=== PATIENT | female | born 1990 | race Caucasian/White ===

== ENCOUNTER 2020-03-15 15:53 | Inpatient (IN) | payer BC ==
[2020-03-17] MEDS ORDERED: Bupivacaine 0.25% 10 ML SDV ONE
[2020-03-17] MEDS ORDERED: Nalbuphine 10 MG/ML Syringe IVPUSH PRN (18:19)
[2020-03-17] MEDS ORDERED: Sodium Chloride 0.9% 10 ML Syringe FLUSH PRN (18:19)
[2020-03-17] MEDS ORDERED: Oxytocin/Lactated Ringers 10 UNIT/1,000 ML BAG IV SCH ×2 (18:30)
[2020-03-17] MEDS: Lactated Ringers 1,000 ML IV SCH ×5 (19:26→21:35)
[2020-03-17] MEDS ORDERED: diphenhydrAMINE 50 MG/ML SDV IVPUSH PRN (19:48)
[2020-03-17] MEDS ORDERED: Bupivacaine/fentaNYL/NS 100 ML Bag EPIDUR PRN (19:48)
[2020-03-17] MEDS ORDERED: ePHEDrine 50 MG/ML SDV IVPUSH PRN (19:48)
[2020-03-17] MEDS ORDERED: fentaNYL 100 MCG/2 ML SDV EPIDUR PRN (19:48)
--- NOTE | 2020-03-17 20:17 | PCM.PREANE ---
Preanesthetic Assessment - Procedure Proposed Procedure: epidural - Anesthesia/Transfusion/Family Hx Anesthesia History: Prior Anesthesia Without Reaction Family History of Anesthesia Reaction: No Transfusion History: No Prior Transfusion(s) - Review of Systems General: Fatigue Pulmonary: No Symptoms Cardiovascular: No Symptoms Gastrointestinal: Abdominal Pain (labor) Neurological: No Symptoms Other: Reports: None - Physical Assessment Vital Signs: Last Vital Signs Temp 36.7 C 03/17/20 17:48 Pulse 107 H 03/17/20 17:48 Resp 18 03/17/20 17:48 BP 118/85 03/17/20 17:48 Pulse Ox 100 03/17/20 17:48 Height: 1.63 m Weight: 66.678 kg ASA Class: 2 Mental Status: Alert & Oriented x3 Airway Class: Mallampati = 1 Dentition: Reports: Normal Dentition Thyro-Mental Finger Breadths: 3 Mouth Opening Finger Breadths: 3 ROM/Head Extension: Full Lungs: Clear to Auscultation, Normal Respiratory Effort Cardiovascular: Regular Rate, Regular Rhythm - Lab Values: Laboratory Last Values WBC 5.36 K/mm3 (3.98-10.04) 03/17/20 18:29 RBC 3.74 M/mm3 (3.98-5.22) L 03/17/20 18:29 Hgb 11.5 gm/dl (11.2-15.7) 03/17/20 18:29 Hct 35.1 % (34.1-44.9) 03/17/20 18: MCV 93.9 fl (79.4-94.8) 03/17/20 18:29 MCH 30.7 pg (25.6-32.2) 03/17/20 18: MCHC 32.8 g/dl (32.2-35.5) 03/17/20 18:29 RDW Std Deviation 45.0 fL (36.4-46.3) 03/17/20 18:29 Plt Count 119 K/mm3 (182-369) L 03/17/20 18: MPV 11.3 fl (9.4-12.3) 03/17/20 18:29 Neut % (Auto) 68.0 % (34.0-71.1) 03/17/20 18: Lymph % (Auto) 25.2 % (19.3-51.7) 03/17/20 18: [place] % (Auto) 6.2 % (4.7-12.5) 03/17/20 18: Eos % (Auto) 0.4 (0.7-5.8) L 03/17/20 18: Baso % (Auto) 0.2 % (0.1-1.2) 03/17/20 18: Neut # (Auto) 3.65 K/mm3 (1.56-6.13) 03/17/20 18: Lymph # (Auto) 1.35 K/mm3 (1.18-3.74) 03/17/20 18: [place] # (Auto) 0.33 K/mm3 (0.24-0.36) 03/17/20 18: Eos # (Auto) 0.02 K/mm3 (0.04-0.36) L 03/17/20 18: Baso # (Auto) 0.01 K/mm3 (0.01-0.08) 03/17/20 18:29 COVID-19 (GALE) Negative (NEGATIVE) 03/17/20 18:30 Blood Type O POSITIVE 03/17/20 18:29 Gel Antibody Screen Negative 03/17/20 18:29 - Allergies Allergies/Adverse Reactions: Allergies Allergy/AdvReac Type Severity Reaction Status Date / Time No Known Allergies Allergy Verified 03/17/20 19:26 - Anesthesia Plan Pre-Op Medication Ordered: None - Acknowledgements Anesthesia Type Planned: Epidural Pt an Appropriate Candidate for the Planned Anesthesia: Yes Alternatives and Risks of Anesthesia Discussed w Pt/Guardian: Yes Pt/Guardian Understands and Agrees with Anesthesia Plan: Yes PreAnesthesia Questionnaire - Past Health History Medical/Surgical History: Denies Medical/Surgical History Gastrointestinal History: Reports: GERD 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: - HOME MEDS Home Medications: Home Meds Vits #93/Iron Fum/FA [ Formula Tablet] 1 each PO DAILY 03/17/20 [History] - CURRENT (IN HOUSE) MEDS Current Meds: Current Medications Diphenhydramine HCl (Benadryl) 25 mg IVPUSH Q6H PRN PRN Reason: pruritis Ephedrine Sulfate (Ephedrine Sulfate) 5 mg IVPUSH ASDIRECTED PRN PRN Reason: Hypotension Fentanyl (Sublimaze) 100 mcg EPIDUR Q3H PRN PRN Reason: Pain Last Admin: 03/17/20 19:59 Dose: 100 mcg Documented by: Fentanyl/Bupivacaine HCl (Fentanyl/Bupivacaine/Ns 2 Mcg-0.125% 100 Ml) 100 ml EPIDUR ASDIRECTED PRN PRN Reason: Pain Last Admin: 03/17/20 19:59 Dose: 100 ml Documented by: Oxytocin/Lactated Ringer's (Pitocin In Lr 10 Units/1,000 Ml) 10 unit in 1,000 mls @ 12 mls/hr IV TITRATE JEREMIAH; Protocol Oxytocin/Lactated Ringer's (Pitocin In Lr 10 Units/1,000 Ml) 10 unit in 1,000 mls @ 100 mls/hr IV .CONTINUOUS JEREMIAH Lactated Ringer's (Ringers, Lactated) 1,000 mls @ 100 mls/hr IV ASDIRECTED JEREMIAH Last Admin: 03/17/20 19:26 Dose: 100 mls/hr Documented by: Nalbuphine HCl (Nubain) 10 mg IVPUSH Q2H PRN PRN Reason: Pain Sodium Chloride (Saline Flush) 10 ml FLUSH ASDIRECTED PRN PRN Reason: Keep Vein Open
--- NOTE | 2020-03-17 21:14 | PCM.LDHP ---
L&D History of Present Illness - General Date of Service: 03/17/20 Admit Problem/Dx: Patient Status Order with Admit Dx/Problem 03/17/20 18:20 Patient Status [ADT] Routine Admission Diagnosis/Problem Admission Diagnosis/Problem 03/17/20 21:05 Rachelle is a 29-year-old 3 para 2-0-0-2 white female who is admitted on the afternoon of 03/17/2020 at 40-1/7 weeks gestational age with an SREE of 03/16/2020 for induction of labor. Source of Information: Patient History Limitations: Reports: No Limitations - History of Present Illness Introduction:: Rachelle is a 29-year-old 3 para 2-0-0-2 white female who is admitted on the afternoon of 03/17/2020 at 40-1/7 weeks gestational age with an SREE of 2019 for induction of labor. The procedure and process of induction of labor its risks, benefits and follow-up along with alternatives of care discussed in detail with patient. She appears to understand and wishes to proceed. 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 Patient had menarche at age 16. Cycles q. 28 days. Last menstrual cycle was certain with an SREE of 03/16/2020 as determined by her LMP 06/10/2019 and supported by at least 2 ultrasounds during the course of the . Patient's previous obstetric history includes the followin. Female infant born 01/30/2015 at 40 weeks gestational age at 12:12 hours of labor6 pound 11 ounce. with epidural with child born in [place]. This child's name is Hellen 2. Female infant born [birth year]16/2016 at 40 weeks gestational age after 5 hours of labor. 7 pounds 0 ounces child born via . Epidural anesthesia. Child born in [place]. Her name is Shaniqua. course: Patient's course was relatively unremarkable. Her first visit was at 11 weeks and 5 days on 08/31/2019. She was seen on a very regular basis. Throughout the she had a weight gain from 125 to 147.2 pounds for a 22.2 pound increase. Her blood pressure and vital signs remained normal throughout the course. Fundal height growth was essentially appropriate. Her heart rate was normal. Her group B strep s creen is negative. Platelet count ran lower than optimal with last count on 03/09/2020 at 134,000. She desires an epidural. Her [place] depression screen score is 1/30 on 11/17/2019. She has a history of fast labor. Patient plans to breast-feed. Patient's immunization record shows her Tdap was given on 01/11/2020. laboratory testing shows blood to be O+ with a negative antibody screen. Her hemoglobin is 12.2 g/dL on first visit and platelets are 163,000. She was rubella immune. RPR is nonreactive. Hepatitis B surface antigen and HIV assays were both negative. Gonorrhea and Chlamydia tests were negative. Second trimester labs showed a hemoglobin of 11.5 g/dL and platelets are 128,000. Diabetic screening test was normal at 126. Repeat platelet count on 01/25/2020 was 122,000 and hemoglobin was 10.9. Patient was advised to start on iron supplementation at that time. Her RPR recheck on 12/15/2019 was nonreactive and her group B strep screen was negative. Allergies: None Medications: adult gummy vitamins. Past medical history: 1. x2. 2. Thrombocytopenia stational in nature. Past surgical history: Unremarkable. Family history: Mother and father are alive and well. 4 sisters all alive and well. Maternal grand mother is alive but with a history of breast cancer after age 50. Paternal grand mother is alive and well. Maternal grandfather is alive and well and paternal grandfather is at age 93. No known family history of cancer, bleeding or clotting disorders, anesthesia related issues or related problems. Social history: Patient is . is Kaz Grajeda. 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 They live in [place], [place]. She does not use any significant muscle alcohol, drugs or tobacco. Review of systems: In general patient has no complaints. His last evening which almost brought her to the hospital. They then subsided and she is able to rest. She is reporting good activity. Skin: Negative Lungs: No infectious symptoms or shortness of breath Cardiovascular: No chest pain or exercise intolerance Breasts: No lumps, changes in size, pain, dimpling, discharge or axillary or supraclavicular concerns. Patient plans to breast-feed. GI: Negative : changes noted. Musculoskeletal: Negative Neurological: Negative Physical exam: In general the patient is well-developed, well-nourished, pleasant female of stated age in no acute distress. Skin is warm dry without lesions. HEENT, neck and back within normal limits. Lungs are clear with good breath sounds in all lung fowler. Cardiovascular exam shows regular and rhythm without murmurs. Breast exam is deferred having been done at first medical visit and found to be normal. It is not repeated at this time Abdomen is gravid with last fundal height in clinic at 34.5 cm both babies had very low in the pelvis. Baby is felt to be in vertex presentation. Genital evaluation per digital exam shows cervix upon admission to be 3 cm, 90% effaced, -3 station but well applied to the cervix, anterior and soft. Patient underwent artificial rupture membranes with resultant clear amniotic fluid. Extremities and neurological exam are grossly within normal limits. 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&P Review of Systems - Review of Systems: Review Of Systems: See Below L&D Exam - Exam Exam: See Below - Vital Signs Vital Signs: Last Vital Signs Temp 36.7 C 03/17/20 17:48 Pulse 107 H 03/17/20 17:48 Resp 18 03/17/20 17:48 BP 118/85 03/17/20 17:48 Pulse Ox 100 03/17/20 17:48 Weight: 66.678 kg - Patient Data Lab Results Last 24 hrs: Laboratory Results - last 24 hr 03/17/20 03/17/20 03/17/20 Range/Units 18:29 18:29 18:30 WBC 5.36 (3.98-10.04) K/mm3 RBC 3.74 L (3.98-5.22) M/mm3 Hgb 11.5 (11.2-15.7) gm/dl Hct 35.1 (34.1-44.9) % MCV 93.9 (79.4-94.8) fl MCH 30.7 (25.6-32.2) pg MCHC 32.8 (32.2-35.5) g/dl RDW Std Deviation 45.0 (36.4-46.3) fL Plt Count 119 L (182-369) K/mm3 MPV 11.3 (9.4-12.3) fl Neut % (Auto) 68.0 (34.0-71.1) % Lymph % (Auto) 25.2 (19.3-51.7) % [place] % (Auto) 6.2 (4.7-12.5) % Eos % (Auto) 0.4 L (0.7-5.8) Baso % (Auto) 0.2 (0.1-1.2) % Neut # (Auto) 3.65 (1.56-6.13) K/mm3 Lymph # (Auto) 1.35 (1.18-3.74) K/mm3 [place] # (Auto) 0.33 (0.24-0.36) K/mm3 Eos # (Auto) 0.02 L (0.04-0.36) K/mm3 Baso # (Auto) 0.01 (0.01-0.08) K/mm3 COVID-19 (GALE) Negative (NEGATIVE) Blood Type O POSITIVE Gel Antibody Screen Negative Result Diagrams: 03/17/20 18:29 Problem List Initiated/Reviewed/Updated: Yes Orders Last 24hrs: Active Orders 24 hr Category Date Time Status Patient Status [ADT] Routine ADT 03/17/20 18:20 Active Activity as Tolerated [RC] PFP Care 03/17/20 18:19 Active Communication Order [RC] ASDIRECTED Care 03/17/20 18:19 Active Communication Order [RC] ASDIRECTED Care 03/17/20 19:49 Active Cooling Warming Measures [RC] ASDIRECTED Care 03/17/20 19:49 Active Heart Tones [RC] ASDIRECTED Care 03/17/20 18:20 Active Non Stress Test [RC] PER UNIT ROUTINE Care 03/17/20 18:19 Active Notify Provider [RC] ASDIRECTED Care 03/17/20 19:48 Active Notify Provider [RC] ASDIRECTED Care 03/17/20 19:49 Active Notify Provider [RC] PFP Care 03/17/20 18:19 Active Notify Provider [RC] PRN Care 03/17/20 18:19 Active Oxygen Therapy [RC] ASDIRECTED Care 03/17/20 19:49 Active Peripheral IV Care [RC] . DIRECTED Care 03/17/20 18:20 Active Pulse Oximetry [RC] ASDIRECTED Care 03/17/20 19:49 Active Vital Signs [RC] PER UNIT ROUTINE Care 03/17/20 18:19 Active Vital Signs [RC] Q1H Care 03/17/20 19:49 Active Regular Diet [DIET] Diet 03/17/20 Breakfast Active RAPID PLASMA REAGIN,RPR [CHEM] Stat Lab 03/17/20 18:29 Received Bupivacaine/fentaNYL/NS [fentaNYL/Bupivacaine/NS 2 MCG- Med 03/17/20 19:48 Active 0.125% 100 ML] 100 ml EPIDUR ASDIRECTED PRN Lactated Ringers [Ringers, Lactated] 1,000 ml Med 03/17/20 18:30 Active IV ASDIRECTED Nalbuphine [Nubain] Med 03/17/20 18:19 Active 10 mg IVPUSH Q2H PRN Oxytocin/Lactated Ringers [Pitocin in LR 10 Units/1,000 Med 03/17/20 18:30 Active ML] 10 unit in 1,000 ml IV .CONTINUOUS Oxytocin/Lactated Ringers [Pitocin in LR 10 Units/1,000 Med 03/17/20 18:30 Active ML] 10 unit in 1,000 ml IV TITRATE Sodium Chloride 0.9% [Saline Flush] Med 03/17/20 18:19 Active 10 ml FLUSH ASDIRECTED PRN diphenhydrAMINE [Benadryl] Med 03/17/20 19:48 Active 25 mg IVPUSH Q6H PRN ePHEDrine [ePHEDrine sulfate] Med 03/17/20 19:48 Active 5 mg IVPUSH ASDIRECTED PRN fentaNYL [Sublimaze] Med 03/17/20 19:48 Active 100 mcg EPIDUR Q3H PRN Electronic Heart Tones Ext w TOCO [WOMSER] Oth 03/17/20 18:19 Ordered Routine Electronic Heart Tones Internal [WOMSER] Per Unit Oth 03/17/20 18:19 Ordered Routine Peripheral IV Insertion Adult [OM.PC] Routine Oth 03/17/20 18:19 Ordered Resuscitation Status Routine Resus Stat 03/17/20 18:19 Ordered Medication Orders Diphenhydramine HCl (Benadryl) 25 mg IVPUSH Q6H PRN PRN Reason: pruritis Ephedrine Sulfate (Ephedrine Sulfate) 5 mg IVPUSH ASDIRECTED PRN PRN Reason: Hypotension Fentanyl (Sublimaze) 100 mcg EPIDUR Q3H PRN PRN Reason: Pain Last Admin: 03/17/20 19:59 Dose: 100 mcg Documented by: GRAY Fentanyl/Bupivacaine HCl (Fentanyl/Bupivacaine/Ns 2 Mcg-0.125% 100 Ml) 100 ml EPIDUR ASDIRECTED PRN PRN Reason: Pain Last Admin: 03/17/20 19:59 Dose: 100 ml Documented by: GRAY Oxytocin/Lactated Ringer's (Pitocin In Lr 10 Units/1,000 Ml) 10 unit in 1,000 mls @ 12 mls/hr IV TITRATE JEREMIAH; Protocol Oxytocin/Lactated Ringer's (Pitocin In Lr 10 Units/1,000 Ml) 10 unit in 1,000 mls @ 100 mls/hr IV .CONTINUOUS JEREMIAH Lactated Ringer's (Ringers, Lactated) 1,000 mls @ 100 mls/hr IV ASDIRECTED JEREMIAH Last Admin: 03/17/20 20:30 Dose: 100 mls/hr Documented by: Infusion: 03/17/20 20:30 Dose: 100 mls/hr Documented by: Admin: 03/17/20 20:28 Dose: 100 mls/hr Documented by: Infusion: 03/17/20 20:28 Dose: 100 mls/hr Documented by: Admin: 03/17/20 20:25 Dose: 100 mls/hr Documented by: Infusion: 03/17/20 19:26 Dose: 100 mls/hr Documented by: Admin: 03/17/20 19:26 Dose: 100 mls/hr Documented by: GRAY Nalbuphine HCl (Nubain) 10 mg IVPUSH Q2H PRN PRN Reason: Pain Sodium Chloride (Saline Flush) 10 ml FLUSH ASDIRECTED PRN PRN Reason: Keep Vein Open Assessment/Plan Comment:: 1. 40-1/7-week intrauterine , admitted for induction of labor. 2. Group B strep screen negative 3. Patient desires epidural 4. Patient plans to breast-feed 5. Platelets low but acceptable at 119,000. Level is adequate to allow for regional anesthesia with epidural. 6. Patient is rubella immune. 7. Tdap was given during the . 8. Reported history of rapid labors Plan: 1. Anticipate normal spontaneous vaginal delivery 2. Epidural per patient desire 3. Platelet count and RPR performed per routine protocol 4. Routine labor care
[2020-03-17] MEDS ORDERED: Acetaminophen 325 MG Tab PO PRN ×2 (21:38→23:46)
--- NOTE | 2020-03-17 23:16 | PCM.SN.2 ---
- Free Text/Narrative Note: Delivery note: Rachelle is a 29-year-old 3 para 2-0-0-2 white female who is admitted on the afternoon of 03/17/2020 at 40-1/7 weeks gestational age with an SREE of 03/16/2020 for induction of labor. Patient is noted to be dilated to 3 cm upon admission and artificial rupture membranes undertaken. With this she kicked into an early labor pattern she underwent labor epidural for analgesia. She was augmented with Pitocin to facilitate a more efficient labor. She became complete at approximately 2200 hrs. and pushed to approximately 2250 was at which time she delivered a viable, albright, female infant with Apgars of 9 and 9, length of 19.5 inches and a weight of 3220 g (7 pounds 1.6 ounces). The baby delivered in a right occiput anterior position. The perineum remained intact, no lacerations occurred and she did not require any suturing. The baby was placed on mom's abdomen and dried with a warm bath blanket and nose mouth were bulb suction. The Pitocin was increased to 500 cc an hour to facilitate increase in uterine tone and decrease likelihood of bleeding. The umbilical cord was allowed to pulsate times approximately 2 to 3 minutes, was then clamped x2 and cut by the baby's Father Kaz. There were 3 vessels in the umbilical cord. Cord blood was obtained. Patient's perineum was evaluated and no lacerations were found. No suturing was ordered. The placenta delivered at 2259 hrs. on 03/17/2020. It appeared intact and complete. It delivered in a Choi presentation. Estimated blood loss was 100 cc. Condition: Good. Patient plans to breast- feed.
[2020-03-17] MEDS ORDERED: Docusate Sodium 100 MG Cap PO PRN (23:46)
[2020-03-17] MEDS ORDERED: Benzocaine/Menthol 20%-0.5% Spray 56 GM Canister TOP PRN (23:46)
[2020-03-17] MEDS ORDERED: Witch Hazel Medicated Pads 40/Jar TOP PRN (23:46)
[2020-03-18] MEDS: Ibuprofen 600 MG Tab PO PRN ×3 (00:55→19:10)
[2020-03-18] MEDS ORDERED: Oxytocin/Lactated Ringers 10 UNIT/1,000 ML BAG IV ONE (05:00)
--- NOTE | 2020-03-18 05:57 | PCM.SN.2 ---
- Free Text/Narrative Note: note: Patient is doing well in the period. Minimal lochia, voiding well, ambulated without problems. Nursing without concerns. Patient is afebrile, vital signs are stable Abdomen is flat, soft, uterus is below the umbilicus and is firm and nontender. Legs are nontender. Assessment: recovery going well. Plan: Routine care. Patient be discharged home within the next 24-48 hours.
[2020-03-19] MEDS: Ibuprofen 600 MG Tab PO PRN ×2 (03:37→07:31)
--- NOTE | 2020-03-19 07:21 | PCM.SN.2 ---
- Free Text/Narrative Note: Post Progress Note PPD #2 Subjective: Doing well overall. Ambulating without difficulty. Lochia minimal. Voiding without difficulty. Tolerating regular diet without nausea or vomiting. Pain controlled with oral medications. Breast-feeding with minimal difficulty. Objective: Vitals: Vital Signs - 24 hr 03/18/20 03/18/20 03/18/20 09:28 15:00 19:50 Temperature 36.6 C 36.3 C Temperature [ 36.4 C Temporal] Pulse, 53 L 55 L Peripheral Pulse, 64 Peripheral [ Pulse Oximetry] Respiratory 15 15 15 Rate Blood Pressure 104/68 117/65 Blood Pressure 118/68 [Upper Arm] O2 Sat by Pulse 99 100 99 Oximetry 03/19/20 03:37 Temperature 36.3 C Temperature [ Temporal] Pulse, 63 Peripheral Pulse, Peripheral [ Pulse Oximetry] Respiratory 16 Rate Blood Pressure 106/71 Blood Pressure [Upper Arm] O2 Sat by Pulse 98 Oximetry Physical Exam General: Alert and oriented, no acute distress Lungs: Clear to auscultation bilaterally Heart: Regular rate and rhythm Abdomen: Soft, minimal appropriate tenderness, non-distended, fundus midline, nontender, and 1 fingerbreadth below the umbilicus Extremities: No edema Laboratory Tests 03/17/20 03/17/20 03/17/20 Range/Units 18:29 18:29 18:29 WBC 5.36 (3.98-10.04) K/mm3 RBC 3.74 L (3.98-5.22) M/mm3 Hgb 11.5 (11.2-15.7) gm/dl Hct 35.1 (34.1-44.9) % MCV 93.9 (79.4-94.8) fl MCH 30.7 (25.6-32.2) pg MCHC 32.8 (32.2-35.5) g/dl RDW Std Deviation 45.0 (36.4-46.3) fL Plt Count 119 L (182-369) K/mm3 MPV 11.3 (9.4-12.3) fl Neut % (Auto) 68.0 (34.0-71.1) % Lymph % (Auto) 25.2 (19.3-51.7) % [place] % (Auto) 6.2 (4.7-12.5) % Eos % (Auto) 0.4 L (0.7-5.8) Baso % (Auto) 0.2 (0.1-1.2) % Neut # (Auto) 3.65 (1.56-6.13) K/mm3 Lymph # (Auto) 1.35 (1.18-3.74) K/mm3 [place] # (Auto) 0.33 (0.24-0.36) K/mm3 Eos # (Auto) 0.02 L (0.04-0.36) K/mm3 Baso # (Auto) 0.01 (0.01-0.08) K/mm3 RPR Non-reactive (NONREACTIVE) COVID-19 (GALE) (NEGATIVE) Blood Type O POSITIVE Gel Antibody Screen Negative 03/17/20 Range/Units 18:30 WBC (3.98-10.04) K/mm3 RBC (3.98-5.22) M/mm3 Hgb (11.2-15.7) gm/dl Hct (34.1-44.9) % MCV (79.4-94.8) fl MCH (25.6-32.2) pg MCHC (32.2-35.5) g/dl RDW Std Deviation (36.4-46.3) fL Plt Count (182-369) K/mm3 MPV (9.4-12.3) fl Neut % (Auto) (34.0-71.1) % Lymph % (Auto) (19.3-51.7) % [place] % (Auto) (4.7-12.5) % Eos % (Auto) (0.7-5.8) Baso % (Auto) (0.1-1.2) % Neut # (Auto) (1.56-6.13) K/mm3 Lymph # (Auto) (1.18-3.74) K/mm3 [place] # (Auto) (0.24-0.36) K/mm3 Eos # (Auto) (0.04-0.36) K/mm3 Baso # (Auto) (0.01-0.08) K/mm3 RPR (NONREACTIVE) COVID-19 (GALE) Negative (NEGATIVE) Blood Type Gel Antibody Screen ASSESSMENT: 29-year-old female -0-0-3 s/p normal vaginal delivery PPD #2, complicated by gestational thrombocytopenia PLAN: Doing well Breast-feeding with minimal difficulty. Assist as needed Lochia minimal. Continue to monitor for appropriate lochia. Continue routine care Anticipate discharge home today Thom Leach MD 7:20 AM 03/19/2020
--- NOTE | 2020-03-19 07:29 | PCM.DCSUM1 ---
Discharge Summary - Hospital Course Free Text/Narrative:: Delivery note: Rachelle is a 29-year-old 3 para 2-0-0-2 white female who is admitted on the afternoon of 03/17/2020 at 40-1/7 weeks gestational age with an SREE of 03/16/2020 for induction of labor. Patient is noted to be dilated to 3 cm upon admission and artificial rupture membranes undertaken. With this she kicked into an early labor pattern she underwent labor epidural for analgesia. She was augmented with Pitocin to facilitate a more efficient labor. She became complete at approximately 2200 hrs. and pushed to approximately 2250 was at which time she delivered a viable, albright, female infant with Apgars of 9 and 9, length of 19.5 inches and a weight of 3220 g (7 pounds 1.6 ounces). The baby delivered in a right occiput anterior position. The perineum remained intact, no lacerations occurred and she did not require any suturing. The baby was placed on mom's abdomen and dried with a warm bath blanket and nose mouth were bulb suction. The Pitocin was increased to 500 cc an hour to facilitate increase in uterine tone and decrease likelihood of bleeding. The umbilical cord was allowed to pulsate times approximately 2 to 3 minutes, was then clamped x2 and cut by the baby's Father Kaz. There were 3 vessels in the umbilical cord. Cord blood was obtained. Patient's perineum was evaluated and no lacerations were found. No suturing was ordered. The placenta delivered at 2259 hrs. on 03/17/2020. It appeared intact and co mplete. It delivered in a Choi presentation. Estimated blood loss was 100 cc. Condition: Good. Patient plans to breast- feed. HPI Initial Comments: Delivery note: Rachelle is a 29-year-old 3 para 2-0-0-2 white female who is admitted on the afternoon of 03/17/2020 at 40-1/7 weeks gestational age with an SREE of 03/16/2020 for induction of labor. Patient is noted to be dilated to 3 cm upon admission and artificial rupture membranes undertaken. With this she kicked into an early labor pattern she underwent labor epidural for analgesia. She was augmented with Pitocin to facilitate a more efficient labor. She became complete at approximately 2200 hrs. and pushed to approximately 2250 was at which time she delivered a viable, albright, female with Apgars of 9 and 9, length of 19.5 inches and a weight of 3220 g (7 pounds 1.6 ounces). The baby delivered in a right occiput anterior position. The perineum remained intact, no lacerations occurred and she did not require any suturing. The baby was placed on mom's abdomen and dried with a warm bath blanket and nose mouth were bulb suction. The Pitocin was increased to 500 cc an hour to facilitate increase in uterine tone and decrease likelihood of bleeding. The umbilical cord was allowed to pulsate times approximately 2 to 3 minutes, was then clamped x2 and cut by the baby's Father Kaz. There were 3 vessels in the umbilical cord. Cord blood was obtained. Patient's perineum was evaluated and no lacerations were found. No suturing was ordered. The placenta delivered at 2259 hrs. on 03/17/2020. It appeared intact and complete. It delivered in a Choi presentation. Estimated blood loss was 100 cc. Condition: Good. Patient plans to breast- feed. Brief History: Delivery note: Rachelle is a 29-year-old 3 para 2-0-0-2 white female who is admitted on the afternoon of 03/17/2020 at 40-1/7 weeks gestational age with an SREE of 03/16/2020 for induction of labor. Patient is noted to be dilated to 3 cm upon admission and artificial rupture membranes undertaken. With this she kicked into an early labor pattern she underwent labor epidural for analgesia. She was augmented with Pitocin to facilitate a more efficient labor. She became complete at approximately 2200 hrs. and pushed to approximately 2250 was at which time she delivered a viable, albright, female infant with Apgars of 9 and 9, length of 19.5 inches and a weight of 3220 g (7 pounds 1.6 ounces). The baby delivered in a right occiput anterior position. The perineum remained intact, no lacerations occurred and she did not require any suturing. The baby was placed on mom's abdomen and dried with a warm bath blanket and nose mouth were bulb suction. The Pitocin was increased to 500 cc an hour to facilitate increase in uterine tone and decrease likelihood of bleeding. The umbilical cord was allowed to pulsate times approximately 2 to 3 minutes, was then clamped x2 and cut by the baby's Father Kaz. There were 3 vessels in the umbilical cord. Cord blood was obtained. Patient's perineum was evaluated and no lacerations were found. No suturing was ordered. The placenta delivered at 2259 hrs. on 03/17/2020. It appeared intact and complete. It delivered in a Choi presentation. Estimated blood loss was 100 cc. Condition: Good. Patient plans to breast-feed. Diagnosis: Stroke: No - Discharge Data Discharge Date: 03/19/20 Discharge Disposition: Home, Self-Care 01 Condition: Good - Referral to Home Health Primary Care Physician: Johnny Pulido MD - Discharge Diagnosis/Problem(s) (1) 40 weeks gestation of SNOMED Code(s): 87466966 ICD Code: Z3A.40 - 40 WEEKS GESTATION OF Status: Acute Current Visit: Yes (2) Gestational thrombocytopenia SNOMED Code(s): 354131591 ICD Code: O99.119 - OTH DIS OF BLD/BLD-FORM ORG/IMMUN MECHNSM COMP PREG,UNSP TRI; D69.6 - THROMBOCYTOPENIA, UNSPECIFIED Status: Acute Current Visit: Yes (3) Vaginal delivery SNOMED Code(s): 716908435 ICD Code: O80 - ENCOUNTER FOR FULL-TERM UNCOMPLICATED DELIVERY Status: Acute Current Visit: Yes - Patient Summary/Data Complications: None Consults: None Hospital Course: Rachelle Grajeda was admitted for induction of labor. On admission her cervix was dilated to 3 cm. She was GBS negative. She had artificial rupture of membranes with clear fluid. She was given pitocin for augmentation. She was given an epidural for anesthesia. [She progressed to complete and began pushing. On 03/17/2020 she had a normal vaginal delivery of a live female at 22:50. Apgars of 9 and 9. Weight of 3220 g (7 pounds 1.6 ounces). Her course was uneventful. Her pain was well controlled and she had minimal lochia. She was ambulating, tolerating a regular diet and voiding normally. She was breast-feeding with minimal difficulty. She was afebrile and her hematocrit was 35.1 on admission. She desired to be discharged home on the morning of PPD #2. Her blood type is O+. - Patient Instructions Diet: Regular Diet as Tolerated Activity: Apply Ice, As Tolerated Activity, Other: Nothing in the vagina for 6 weeks Driving: May Drive Today (Unless having significant pain) Showering/Bathing: May Shower Notify Provider of: Fever, Increased Pain, Swelling and Redness, Drainage, Nausea and/or Vomiting Other/Special Instructions: Please contact your physician's office if you have heavy vaginal bleeding enough to soak a pad in less than an hour for several hours. Monitor for any signs of an infection in the breasts with severe pain or redness of the breast. - Discharge Plan *PRESCRIPTION DRUG MONITORING PROGRAM REVIEWED*: Not Applicable *COPY OF PRESCRIPTION DRUG MONITORING REPORT IN PATIENT KRISTINE: Not Applicable Home Medications: Home Meds Vits #93/Iron Fum/FA [ Formula Tablet] 1 each PO DAILY 03/17/20 [History] Acetaminophen [Tylenol] 650 mg PO Q6H PRN tablet 03/19/20 [Rx] Benzocaine/Menthol [Dermoplast Pain Relief [place]] 1 spray TOP ASDIRECTED PRN canister 03/19/20 [Rx] Docusate Sodium [Colace] 100 mg PO BID PRN cap 03/19/20 [Rx] Ibuprofen [Motrin] 600 mg PO Q6H PRN tablet 03/19/20 [Rx] witch Ronny [Tucks] 1 pad TOP ASDIRECTED PRN pad 03/19/20 [Rx] Patient Handouts: Care After Vaginal Delivery Referrals: Johnny Pulido MD [Primary Care Provider] - (Follow-up in 2 to 3 weeks or earlier as needed.) - Discharge Summary/Plan Comment DC Time >30 min.: No - Patient Data Vitals - Most Recent: Last Vital Signs Temp 36.3 C 03/19/20 03:37 Pulse 63 03/19/20 03:37 Resp 16 03/19/20 03:37 BP 106/71 03/19/20 03:37 Pulse Ox 98 03/19/20 03:37 Weight - Most Recent: 66.678 kg I&O - Last 24 hours: Intake & Output 03/18/20 03/19/20 03/19/20 22:59 06:59 14:59 Intake Total 180 Balance 180 Med Orders - Current: Current Medications Acetaminophen (Tylenol) 650 mg PO Q4H PRN PRN Reason: mild pain or fever Benzocaine/Menthol (Dermoplast Pain [facility] [place]) 0 gm TOP ASDIRECTED PRN PRN Reason: Perineal Comfort Measure Last Admin: 03/18/20 00:41 Dose: 1 applic Documented by: Docusate Sodium (Colace) 100 mg PO BID PRN PRN Reason: Constipation Ibuprofen (Motrin) 600 mg PO Q4H PRN PRN Reason: Mild pain or fever Last Admin: 03/19/20 03:37 Dose: 600 mg Documented by: Pedro Luis Bernabe) 1 pad TOP ASDIRECTED PRN PRN Reason: Perineal Comfort Measure Last Admin: 03/18/20 00:41 Dose: 1 pad Documented by: Discontinued Medications Acetaminophen (Tylenol) 650 mg PO Q4H PRN PRN Reason: Pain Bupivacaine HCl (Sensorcaine-Mpf 0.25%) 10 ml .ROUTE .[facility] ONE Stop: 03/17/20 00:01 Diphenhydramine HCl (Benadryl) 25 mg IVPUSH Q6H PRN PRN Reason: pruritis Ephedrine Sulfate (Ephedrine Sulfate) 5 mg IVPUSH ASDIRECTED PRN PRN Reason: Hypotension Fentanyl (Sublimaze) 100 mcg EPIDUR Q3H PRN PRN Reason: Pain Last Admin: 03/17/20 19:59 Dose: 100 mcg Documented by: Fentanyl/Bupivacaine HCl (Fentanyl/Bupivacaine/Ns 2 Mcg-0.125% 100 Ml) 100 ml EPIDUR ASDIRECTED PRN PRN Reason: Pain Last Admin: 03/17/20 19:59 Dose: 100 ml Documented by: Oxytocin/Lactated Ringer's (Pitocin In Lr 10 Units/1,000 Ml) 10 unit in 1,000 mls @ 12 mls/hr IV TITRATE JEREMIAH; Protocol Last Titration: 03/17/20 22:50 Dose: 83.33 munits/min, 500 mls/hr Documented by: Oxytocin/Lactated Ringer's (Pitocin In Lr 10 Units/1,000 Ml) 10 unit in 1,000 mls @ 100 mls/hr IV .CONTINUOUS JEREMIAH Lactated Ringer's (Ringers, Lactated) 1,000 mls @ 100 mls/hr IV ASDIRECTED JEREMIAH Last Admin: 03/17/20 21:35 Dose: 100 mls/hr Documented by: Oxytocin/Lactated Ringer's (Pitocin In Lr 10 Units/1,000 Ml) Confirm Administered Dose 10 unit in 1,000 mls @ as directed IV .STK-MED ONE Stop: 03/18/20 05:01 Last Admin: 03/18/20 07:44 Dose: Not Given Documented by: Nalbuphine HCl (Nubain) 10 mg IVPUSH Q2H PRN PRN Reason: Pain Sodium Chloride (Saline Flush) 10 ml FLUSH ASDIRECTED PRN PRN Reason: Keep Vein Open
== END 2020-03-19 09:50 | disposition home or self-care (01) | DRG 560 ==
LOC: JD.OB 03-17 17:31 → OBSVTOIN 03-17 22:50
PROVIDERS: ADMIT Obstetrics & Gynecology; ATTEND Obstetrics & Gynecology
PROC: 10E0XZZ Delivery of Products of Conception, External Approach (ICD-10-PCS; principal; 2020-03-17)
PROC: 10907ZC Drainage of Amniotic Fluid, Therapeutic from Products of Conception, Via Natural or Artificial Opening (ICD-10-PCS; 2020-03-17)
PROC: 3E0R3BZ Introduction of Anesthetic Agent into Spinal Canal, Percutaneous Approach (ICD-10-PCS; 2020-03-17)
PROC: 00HU33Z Insertion of Infusion Device into Spinal Canal, Percutaneous Approach (ICD-10-PCS; 2020-03-17)
DX: O99.12 Other diseases of the blood and blood-forming organs and certain disorders involving the immune mechanism complicating childbirth (principal); Z37.0 Single live birth; Z3A.40 40 weeks gestation of pregnancy; D69.6 Thrombocytopenia, unspecified; Z20.828 Contact with and (suspected) exposure to other viral communicable diseases
CPT/HCPCS: 01967; 36415; 51702; 59025; 59409; 85025; 86592; 86850; 86900; 86901; A9270-GY; J2590; J3010; J3490; J7120; U0002

== ENCOUNTER 2024-02-18 21:30 | Inpatient (IN) | payer BC ==
[~2024-02-18 21:30] MED LIST: Bupivacaine 0.25% 10 ML SDV ONE; ePHEDrine 50 MG/ML SDV ONE
[2024-02-18] MEDS ORDERED: Nalbuphine 10 MG/ML Syringe IVPUSH PRN (23:55)
[2024-02-18] MEDS ORDERED: Ondansetron 4 MG/2 ML SDV IVPUSH PRN (23:55)
[2024-02-18] MEDS ORDERED: Sodium Chloride 0.9% 10 ML Syringe FLUSH PRN (23:55)
[2024-02-18] MEDS ORDERED: Lidocaine 1% 50 ML MDV INJECT PRN (23:55)
[2024-02-19 00:11] LABS: BASOPHILS PERCENT AUTO 0.2 % (0.0-1.0); EOSINOPHILS PERCENT AUTO 0.6 % (0.0-6.0); HEMATOCRIT 36.2 % (37.0-47.0); HEMOGLOBIN 12.1 gm/dl (12.0-16.0); IMMATURE GRAN ABSOLUTE AUTO 0.02 K/mm3 (0.00-0.05); IMMATURE GRAN PERCENT AUTO 0.3 % (0.0-0.4); LYMPHOCYTES ABSOLUTE AUTO 1.4 K/mm3 (1.0-4.8); LYMPHOCYTES PERCENT AUTO 21.4 % (24.0-44.0); MEAN CORPUSCULAR HEMOGLOBIN 31.4 pg (28.0-32.0); MEAN CORPUSCULAR HGB CONC 33.4 g/dl (32.0-36.0); MEAN PLATELET VOLUME 11.2 fl (9.4-12.3); MONOCYTES ABSOLUTE AUTO 0.4 K/mm3 (0.0-0.8); MONOCYTES PERCENT AUTO 5.6 % (0.0-8.0); NEUTROPHILS ABSOLUTE AUTO 4.6 K/mm3 (1.8-7.7); NEUTROPHILS PERCENT AUTO 71.9 % (41.0-71.0); PLATELET COUNT,PLT 102 K/mm3 (150-400); RED BLOOD CELL COUNT 3.85 M/mm3 (4.10-5.30)
[2024-02-19] MEDS: Lactated Ringers 1,000 ML IV SCH (00:32)
[2024-02-19] MEDS ORDERED: ePHEDrine 50 MG/ML SDV IVPUSH PRN (00:42)
[2024-02-19] MEDS ORDERED: diphenhydrAMINE 50 MG/ML SDV IVPUSH PRN (00:42)
[2024-02-19] MEDS: fentaNYL 100 MCG/2 ML SDV EPIDUR PRN (00:53)
[2024-02-19] MEDS: Bupivacaine/fentaNYL/NS 100 ML Bag EPIDUR PRN (00:53)
[2024-02-19] MEDS ORDERED: Oxytocin/0.9 % Sodium Chloride 30 UNIT/500 ML BAG IV SCH (02:00)
[2024-02-19] MEDS: Oxytocin/0.9 % Sodium Chloride 30 UNIT/500 ML BAG IV SCH (02:21)
[2024-02-19] MEDS ORDERED: Docusate Sodium 100 MG Cap PO PRN (06:32)
[2024-02-19] MEDS ORDERED: Acetaminophen 325 MG Tab PO PRN (06:32)
[2024-02-19] MEDS: Benzocaine/Menthol 20%-0.5% Spray 78 GM Cannister TOP PRN (06:56)
[2024-02-19] MEDS: Witch Hazel Medicated Pads 40/Jar TOP PRN (06:56)
[2024-02-19] MEDS: Ibuprofen 600 MG Tab PO SCH (06:56)
[2024-02-19] MEDS ORDERED: Sodium Chloride 0.9% 10 ML Syringe FLUSH SCH (09:00)
== END 2024-02-20 11:35 | disposition home or self-care (01) | DRG 560 ==
LOC: JD.OBCHECK 21:30 → JD.OB 21:31 → JD.OBCHECK 23:55 → OBSVTOIN 02-19 04:08 → JD.OB 02-19 04:09
PROVIDERS: ADMIT Obstetrics & Gynecology; ATTEND Obstetrics & Gynecology
PROC: 10E0XZZ Delivery of Products of Conception, External Approach (ICD-10-PCS; principal; 2024-02-19)
PROC: 3E0R3BZ Introduction of Anesthetic Agent into Spinal Canal, Percutaneous Approach (ICD-10-PCS; 2024-02-19)
PROC: 00HU33Z Insertion of Infusion Device into Spinal Canal, Percutaneous Approach (ICD-10-PCS; 2024-02-19)
DX: O99.12 Other diseases of the blood and blood-forming organs and certain disorders involving the immune mechanism complicating childbirth (principal); D69.6 Thrombocytopenia, unspecified; Z3A.39 39 weeks gestation of pregnancy; Z37.0 Single live birth
CPT/HCPCS: 36415; 51702; 59025; 59409; 85025; 86592; 86850; 86900; 86901; A9270-GY; J0665; J3010; J3490; J7120; J7999